=== PATIENT | female | born 1980 ===

== ENCOUNTER 2024-08-02 15:26 | Outpatient (CLI) | payer OTHER | END 2024-08-02 15:35 | disposition home or self-care (01) | LOC: SONOGRAMA 15:26 | PROVIDERS: ATTEND Pathology Anatomic Pathology & Clinical Pathology | DX: D34 Benign neoplasm of thyroid gland (principal); E06.3 Autoimmune thyroiditis; E04.2 Nontoxic multinodular goiter ==

== ENCOUNTER 2025-01-17 02:04 | Emergency (ER) | payer OTHER ==
[~2025-01-17] VITALS: Ht 154.9 cm; Wt 55.3 kg
[2025-01-17] MEDS ORDERED: LIPITOR40 M1 (02:14)
[2025-01-17] MEDS ORDERED: SYNTHROID100 MCG (02:14)
[2025-01-17] MEDS ORDERED: CEFTRIAXONE SODIUM 1,000 MG VIAL ONE (04:53)
[2025-01-17] MEDS ORDERED: CEFTRIAXONE SODIUM 1,000 MG VIAL IM STA (04:54)
[2025-01-17 06:43] LABS: URINE APPEARANCE Clear; URINE BILIRRUBIN Negative (NEGATIVE); URINE BLOOD Large; URINE COLOR Yellow; URINE GLUCOSE Negative (NEGATIVE); URINE KETONE Negative (NEGATIVE); URINE LEUKOCYTE Moderate; URINE NITRATE Negative; URINE PROTEIN Negative (NEGATIVE); URINE UROBILINOGEN 0.2 E.U./dl
[2025-01-17 06:47] LABS: URINE BACTERIA 155.9 uL (0.0-1933); URINE EPITHELIAL CELLS 18.1 uL (0.0-38.8); URINE RBC 8.5 uL (0.0-20.8); URINE WBC 234.4 uL (0.0-23.2)
[2025-01-17 06:49] LABS: URINE CAST 0.00 uL (0.0-1.40)
[2025-01-17] MEDS ORDERED: BACTRIM DS TAB1 EACH PO (07:43)
== END 2025-01-17 07:57 ==
LOC: ER 02:04
PROVIDERS: General Practice
DX: N30.91 Cystitis, unspecified with hematuria (principal); E03.9 Hypothyroidism, unspecified; Z91.010 Allergy to peanuts; Z91.013 Allergy to seafood; Z91.018 Allergy to other foods; Z88.8 Allergy status to other drugs, medicaments and biological substances